=== PATIENT | female | born 1990 | race Caucasian/White ===

== ENCOUNTER 2025-08-15 14:20 | Outpatient (CLI) | payer MEDICAID ==
[2025-08-15 14:53] LABS: LEUKOCYTE ESTERASE ,URINE TRACE (Neg); NITRITES, URINE NEGATIVE (Neg); OCCULT BLOOD,URINE NEGATIVE (Neg)
[2025-08-15 14:56] LABS: MEAN PLATELET VOLUME 7.1 FL (7.4-10.4); RED CELL DISTRIBUTION WIDTH 13.2 % (11.5-14.5)
[2025-08-15 15:03] LABS: UA COLLECTION TYPE CLN CATCH MIDSTREAM
[2025-08-15 15:19] LABS: CHOL/HDL RATIO 5.0 (0.00-4.99); CREATININE 0.64 MG/DL (0.40-0.90); LDL CHOLESTEROL 212 MG/DL (50-100); TOTAL CARBON DIOXIDE 27.4 MMOL/L (24-32); eGFR > 90 ML/MIN
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
[2025-08-15 15:25] LABS: SQUAMOUS EPITHELIAL CELL,UR MODERATE /LPF (FEW)
== END 2025-08-15 23:59 | disposition home or self-care (01) ==
LOC: LAB 14:20
PROVIDERS: ATTEND General Practice
DX: S42.302A Unspecified fracture of shaft of humerus, left arm, initial encounter for closed fracture (principal); Z87.828 Personal history of other (healed) physical injury and trauma; Y24.8XXA Other firearm discharge, undetermined intent, initial encounter; X58.XXXA Exposure to other specified factors, initial encounter; Y93.89 Activity, other specified; Y92.89 Other specified places as the place of occurrence of the external cause; Y99.8 Other external cause status
CPT/HCPCS: 36415; 73060; 80053; 80061; 81001; 82306; 84443; 85025; 87088

== ENCOUNTER 2025-09-04 13:13 | Emergency (ER) | payer MEDICAID ==
[~2025-09-04] VITALS: Ht 165.1 cm; Wt 63.6 kg
[2025-09-04 13:29] VITALS: BP 112/64; PULSE 85; RESP 16; TEMP 98.4; O2SAT 100
[2025-09-04] MEDS ORDERED: AMOX-117 PO (14:51)
--- NOTE | 2025-09-04 14:54 | Physician Documentation ---
History of Present Illness ~ Chief Complaint: Ear Pain Stated Complaint: L EAR PAIN Time Seen by MD: 14:50 HPI This is a 35-year-old female who presents to the emergency department for loss of hearing and pain in the left ear. She reports that she has had upper respiratory symptoms and nasal congestion for two weeks. She endorses recent fevers, although this was subjective. Medication Reconciliation Allergies: Coded Allergies: No Known Allergies (Unverified , 09/04/25) Review of Systems ROS As stated above in the HPI, otherwise all systems are reviewed and negative. Physical Exam Vital Signs: Temperature: 98.4, Source: Temporal, Heart Rate: 85, Respiratory Rate: 16, BP: 112/64, Pulse Oximetry: 100, Weight: 63.640 Oxygen Flow Rate: 0 Physical Exam General: Alert, no apparent distress. HEENT: PERRL, EOMI, no injection, moist mucous membranes. Left TM erythematous and bulging. Right TM not visualized due to cerumen impaction canal. Neck: Full range of motion. Respiratory: Lungs clear, no respiratory distress. Chest: No accessory muscle use. Cardiovascular: Regular rate and rhythm, no murmurs. Gastrointestinal: Soft, nontender, nondistended. Bowels sounds present. Extremities: Normal range of motion, no deformity. Neurologic: Oriented x4. Psychiatric: Normal mood and affect. Skin: Normal color, warm and dry. No edema, no ecchymosis. Progress Results/Orders Results/Orders Vital Signs 09/04/25 13:29 Temp 98.4 Pulse 85 Resp 16 B/P (MAP) 112/64 Pulse Ox 100 O2 Flow Rate 0 Medical Decision Making Additional information obtaine: family Findings accompanies her and contributes hx. Ear Diff. Dx: Considerations: Include: Abrasion, Cerumen impaction, Foreign body, Otitis externa, Barotrauma, Otitis media, Perforation, Referred pain- dental, Referred pain-pharyngitis, Referred pain-sinusitis, Referred pain-TMJ syn., Tympanic Membrane Injury Eye Diff. Dx: Considerations: Include: Other Nose Diff. Dx: Considerations: Include: Other Tooth Diff. Dx: Considerations: Include: Other Throat Diff Dx: Considerations: Include: Other Departure Time of Disposition: 14:50 Disposition: 01 HOME / SELF CARE / HOMELESS Impression: Primary Impression: Left otitis media with effusion Discharge Instructions: Otitis Media, Adult Additional Instructions: Nasal saline multiple times a day. This is available [id number]. With the right ear with wax impaction, use Debrox drops per [id number] labeled instructions. Take the antibiotic for the left ear infection. Follow up with your primary care provider soon, and request a referral to an ear nose throat specialist. Return if worse. Referrals: NO PRIMARY CARE PROVIDER (PCP) Prescriptions Amox Tr/Potassium Clavulanate (Augmentin 875-125 Tablet) 1 Each Tablet 1 TAB PO Q12H for 7 Days, #14 TAB Prov: RAMESH LEONARDO NP 09/04/25 Education Educated: Patient, Family Educated regarding: diagnosis, treatment, prognosis, need for follow up Signature Scribe Signature: x Attestation: The note accurately reflects work and decisions made by me.Ramesh Lazo NP 09/04/25 14:53 RAMESH LEONARDO NP Sep 04, 2025 14:53
== END 2025-09-04 15:00 | disposition home or self-care (01) ==
LOC: ER 13:13
DX: H65.92 Unspecified nonsuppurative otitis media, left ear (principal)
CPT/HCPCS: 99283

== ENCOUNTER 2025-09-12 14:39 | Emergency (ER) | payer MEDICAID ==
[~2025-09-12] VITALS: Ht 165.1 cm; Wt 63.6 kg
[~2025-09-12 14:39] MED LIST: AMOX-117 PO
[2025-09-12 14:57] VITALS: BP 114/66; PULSE 85; RESP 18; O2SAT 99
--- NOTE | 2025-09-12 16:37 | Physician Documentation ---
History of Present Illness ~ Chief Complaint: Ear Pain Stated Complaint: HEARING LOSS Time Seen by MD: 15:45 HPI This is a 35-year-old female who presents with bilateral ear pain and decreased hearing for the past month, patient reports she was treated one-week prior with a course of penicillin though pain has not resolved. Patient reports no fevers and no pain other areas. Patient reports no other acute symptoms or concerns. Medication Reconciliation Allergies: Coded Allergies: No Known Allergies (Unverified , 09/04/25) Scheduled Ciprofloxacin HCl/Dexameth (Ciproflox-Dexameth Otic Susp), 4 DROP EACH EAR BID Discontinued Medications Amox Tr/Potassium Clavulanate (Augmentin 875-125 Tablet), 1 TAB PO Q12H Discontinued Reason: Auto Discontinued Past Medical History Past Medical History: No Pertinent History Review of Systems ROS As stated above in the HPI, otherwise all systems are reviewed and negative. Physical Exam Vital Signs: Temperature: 98.6, Source: Temporal, Heart Rate: 85, Respiratory Rate: 18, BP: 114/66, Pulse Oximetry: 99, Weight: 63.640 Oxygen Flow Rate: 0 Physical Exam VITALS: Reviewed and as above. GENERAL: Alert, nontoxic appearing, no apparent distress. HEENT: Bilateral auditory canals obstructed with cerumen, no postauricular tenderness, erythema or swelling. No facial swelling RESPIRATORY: No increased work of breathing, no respiratory distress, speaking in full clear sentences Progress Progress Note After ear irrigation by RN bilateral auditory canals erythematous, TMs mildly erythematous/injected though nonbulging Results/Orders Results/Orders Completed Orders - CALLIE HOWELL [employer] Cipro 0.3%/Dexameth 0.1% Otic (Ciproflox (09/12/25 17:45) Medications Received in ER Medications (Trade) Dose Ordered Sig/Magdaleno Route PRN Reason Start Time Stop Time Status Last Admin Dose Admin (CIPROFLOX-DEXAMETH OTIC SUSP 10ml bottle) 4 drp ONCE ONCE EACH EAR 09/12/25 17:45 09/12/25 17:46 DC 09/12/25 18:09 4 DRP Vital Signs 09/12/25 09/12/25 14:57 18:16 Temp 98.6 98.6 Pulse 85 Resp 18 B/P (MAP) 114/66 Pulse Ox 99 O2 Flow Rate 0 Medical Decision Making Additional information obtaine: N/A Findings This 35-year-old female presented with bilateral ear pain, after irrigation of cerumen impaction bilateral auditory canals found to be erythematous with non bulging TMs. Given erythematous auditory canals with nonbulging TMs I suspect otitis externa secondary to cerumen impaction. Patient is otherwise well- appearing with remainder of physical exam benign, reassuring there was no postauricular tenderness erythema or swelling. Treatment with otic antibiotics. Patient provided home care instructions return to care precautions and follow up instructions. Ear Diff. Dx: Considerations: Include: Abrasion, Cerumen impaction, Foreign body, Otitis externa, Barotrauma, Otitis media, Perforation, Referred pain- dental, Referred pain-pharyngitis, Referred pain-sinusitis, Referred pain-TMJ syn., Tympanic Membrane Injury Eye Diff. Dx: Considerations: Unlikely: Chalazoin, Conjuctivits-allergic, Conjuctivitis-bacterial, Conjuctivits-chlamydial, Conjuctivitis-viral, Corneal abrasion, Corneal laceration, Corneal ulceration, Foreign body-conjuctiva, Foreign body-corneal, Foreign body-intraocular, Foreign body-lid, Glaucoma, Globe rupture, Hordeolum, Iritis, Orbital cellulitis, Periobital cellulitis, Retinal artery occulsion, Retinal vein occlusion, Rust ring, Subconjunctival hem, Ultraviolet keratitis, Uveitis, Vitreous hemorrhage, Other Nose Diff. Dx: Considerations: Unlikely: Abrasion, Anterior nasal bleed, Avulsion, Contusion, Coagulopathy, Fracture-nasal bone, Fracture-septum, Hypertension, Laceration, Other, Posterior nasal bleed, Retained foreign body, Septal hematoma Tooth Diff. Dx: Considerations: Unlikely: Alveolar fracture, Aveolar osteitis, ANUG, Facial cellulitis, Periapical abscess, Periodontal abscess, Post- extraction bleeding, Pulpitis, Trigeminal neuralgia, Tooth-avulsion, Tooth- eruption, Tooth-fracture, Tooth-subluxation, Other Throat Diff Dx: Considerations: Unlikely: AIDS, Epiglottitis, Esophageal candidiasis, Hand foot mouth disease, Herpangina, Herpetic stomatitis, Herpes simplex, Infection mononucleosis, Immunodeficiency, Nayan's angina, Peritonsillar abscess, Peritonsillar cellulitis, Pharyngitis-diphtheria, Pharyngitis-strepococcal, Pharyngitis-viral, Thrush, URI, Other Departure Time of Disposition: 17:37 Disposition: 01 HOME / SELF CARE / HOMELESS Impression: Primary Impression: Otitis externa of both ears Qualified Codes: H60.93 - Unspecified otitis externa, bilateral Additional Impression: Cerumen impaction Qualified Codes: H61.23 - Impacted cerumen, bilateral Condition: Improved Discharge Instructions: Otitis Externa Additional Instructions: Please use the antibiotic ear drops as prescribed. You may use ibuprofen and or Tylenol as needed for pain. Please follow up with your primary care provider in the next few days. Please return to the emergency department for any new or worsening concerning symptoms. Referrals: NO PRIMARY CARE PROVIDER (PCP) Prescriptions Ciprofloxacin HCl/Dexameth (Ciproflox-Dexameth Otic Susp) 0.3 %-0.1 % Drops.susp 4 DROP EACH EAR BID for 7 Days, #1 BOT Prov: CALLIE HOWELL 09/12/25 Education Educated: Patient Educated regarding: diagnosis, treatment, prognosis, need for follow up Signature Scribe Signature: No scribe Attestation: The note accurately reflects work and decisions made by me.SHANON Rbob 09/13/25 01:36 CALLIE HOWELL Sep 12, 2025 16:37
[2025-09-12] MEDS ORDERED: CIPR7.5D7 EACH EAR (17:39)
[2025-09-12] MEDS: CIPROFLOXACIN HCL/DEXAMETH 7.5 ML DROPS.SUSP EACH EAR ONE (18:09)
[2025-09-12 18:16] VITALS: TEMP 98.6
== END 2025-09-12 18:20 | disposition home or self-care (01) ==
LOC: ER 14:39
DX: H61.23 Impacted cerumen, bilateral (principal); H60.93 Unspecified otitis externa, bilateral
CPT/HCPCS: 69209; 99283; J7030